=== PATIENT | female | born 2000 | race Caucasian/White ===

== ENCOUNTER 2021-05-23 05:25 | Emergency (ER) | payer SELFPAY ==
[2021-05-23 05:36] VITALS: BP 125/84; PULSE 114; RESP 16; TEMP 36.7; O2SAT 100
--- NOTE | 2021-05-23 06:12 | ED.EAR ---
HPI - Ear Problem General Source: patient Mode of arrival: ambulatory Limitations: no limitations History of Present Illness Complaint: ear pain Location: right ear Duration: constant Severity: moderate Relieving factors: NDAIDs Exacerbating factors: nothing Discharge from ear: Reports no Treatment prior to arrival: none Related Data Allergies Allergy/AdvReac Type Severity Reaction Status Date / Time No Known Allergies Allergy Verified 05/23/21 05:33 Review of Systems Review of Systems: All systems reviewed & are unremarkable except as noted in HPI and below PMFSH Past Medical History Medical History Eustachian tube dysfunction Otitis media Exam Const: General: no acute distress Orientation/consciousness: patient oriented x3 HENMT: Head: normal to inspection Ears: external ears normal General nose exam: Normal external nose present and Normal nares present Mouth: Yes lip normal Teeth and gingiva: dentition normal Other: mild bilateral dull TMs with minimal redness on the right. pharynx was minimally red with no acute swelling or exudates. Eyes: Conjunctivae: conjunctivae normal Pupils: Equal, round and reactive pupils present Neck: Neck: normal visual inspection and no lymphadenopathy Chest: Chest palpation & inspection: normal inspection of the chest Resp: Effort & Inspection: normal respiratory effort Auscultation: clear to auscultation bilaterally Cardio: Rate: regular rate Rhythm: regular rhythm GI: Auscultation: normal bowel sounds : General: Yes bladder normal to palpation and Yes no CVA tenderness Back/Spine/Pelvis: Back: no CVA tenderness Skin: General skin exam: normal color Rashes: no rashes Neuro: General: patient oriented x3, moves all extremities, no meningeal signs, no focal motor deficits and CN's II-XI intact bilaterally Extrem: General: normal to inspection and no pedal edema Psych: Appearance: grossly normal and well kempt Mental Status: mental status grossly normal Thought content: Yes Normal thought content present Course Course Emergency Course: Pt was stable in the ED. less ear pain. Reevaluation(s) Date: 05/23/21 Time: 06:11 Vital Signs Vital signs: Vital Signs Temperature 36.7 C 05/23/21 05:36 Pulse Rate 114 H 05/23/21 05:36 Respiratory Rate 16 05/23/21 05:36 Blood Pressure 125/84 05/23/21 05:36 Pulse Oximetry 100 05/23/21 05:36 Temperature 36.7 C 05/23/21 05:36 Pulse Rate 97 05/23/21 06:47 Respiratory Rate 16 05/23/21 06:47 Blood Pressure 100/69 05/23/21 06:47 Pulse Oximetry 99 05/23/21 06:47 Medical Decision Making Differential Diagnosis Differential Diagnosis: Otitis media. eustachian tube dysfunction. Medical Records Medical records reviewed: Yes I reviewed the external patient's medical records. Vital Signs Vital Signs: Vital Signs Temperature 36.7 C 05/23/21 05:36 Pulse Rate 114 H 05/23/21 05:36 Respiratory Rate 16 05/23/21 05:36 Blood Pressure 125/84 05/23/21 05:36 Pulse Oximetry 100 05/23/21 05:36 Temperature 36.7 C 05/23/21 05:36 Pulse Rate 97 05/23/21 06:47 Respiratory Rate 16 05/23/21 06:47 Blood Pressure 100/69 05/23/21 06:47 Pulse Oximetry 99 05/23/21 06:47 Critical Care Time Critical Care Time Critical Care Time: No Total Critical Care Time: 0 Discharge Plan Discharge Clinical Impression: Otitis media Qualifiers: Otitis media type: unspecified Chronicity: acute Qualified Code(s): H66.90 - Otitis media, unspecified, unspecified ear Eustachian tube dysfunction Qualifiers: Laterality: bilateral Qualified Code(s): H69.83 - Other specified disorders of Eustachian tube, bilateral Patient Disposition: Home, Self-Care Condition: Stable Instructions: Antibiotic Form Additional Instructions: Home. May RTC prn. PMD in 1-2 days. Rx below. Prescriptions: New amoxicillin
[2021-05-23] MEDS: ACETAMINOPHEN 325 MG TABLET 650 MG PO (06:18)
[2021-05-23] MEDS: guaiFENesin 12 HR 600 MG TABCR PO (06:19)
[2021-05-23 06:47] VITALS: BP 100/69; PULSE 97; RESP 16; O2SAT 99
== END 2021-05-23 06:48 | disposition home or self-care (01) ==
PROVIDERS: Emergency Provider Emergency Medicine
DX: H66.90 Otitis media, unspecified, unspecified ear (principal); H69.83 Other specified disorders of Eustachian tube, bilateral
CPT/HCPCS: 99283; A9270